=== PATIENT | male | born 1980 | race Two or more races ===

== ENCOUNTER 2020-08-09 11:28 | Emergency (ER) | payer MEDICAID ==
[~2020-08-09] VITALS: Ht 172.7 cm; Wt 90.7 kg
[2020-08-09 12:02] VITALS: BP 153/100
== END 2020-08-09 12:29 | disposition home or self-care (01) ==
LOC: ER 11:38
DX: L03.116 Cellulitis of left lower limb (principal)

== ENCOUNTER 2021-09-17 17:23 | Emergency (ER) | payer MEDICAID ==
[~2021-09-17] VITALS: Ht 172.7 cm; Wt 93.4 kg
--- NOTE | 2021-09-17 17:35 | NUR ---
TO ER BED 12, C/O MID STERNAL CHEST PRESSURE ON & OFF, NON RADIATING +DIZZINESS & BLURRED VISION SINCE SATURDAY, AAOX3, BREATHING EVEN AND NON LABORED, DENIES SOB, CHANGED INTO A GOWN AND CONNECTED TO MONITOR
--- NOTE | 2021-09-17 17:49 | NUR ---
ADAMA Navarro AC ESTABLISHED. LABS DRAWN AND COLLECTED AT BEDSIDE.
[2021-09-17 18:52] LABS: CALCIUM, SERUM 9.2 mg/dL (8.5-10.1); CARBON DIOXIDE 26 mmol/L (21-32); CHLORIDE 102 mmol/L (98-107); CREATININE 0.8 mg/dL (0.6-1.3); GLUCOSE 165 mg/dL (74-106); POTASSIUM 3.6 mmol/L (3.5-5.1); SODIUM SERUM 136 mmol/L (136-145); UREA NITROGEN, BLOOD 18 mg/dL (7-18)
[2021-09-17 19:47] LABS: BASOPHILS % (AUTO) 0.3 % (0.0-2.0); EOSINOPHILS % (AUTO) 0.4 % (0.0-6.0); HEMATOCRIT 43 % (39-51); HEMOGLOBIN 14.4 g/dL (13.5-17.5); LYMPHOCYTES # (AUTO) 2.4 K/uL (0.8-4.8); LYMPHOCYTES % (AUTO) 33.3 % (20.0-44.0); MEAN CORPUSCULAR HGB CONC 33 g/dl (31.0-36.0); MEAN CORPUSCULAR VOLUME 77 fL (80-96); MONOCYTES # (AUTO) 0.5 K/uL (0.1-1.30); MONOCYTES % (AUTO) 6.6 % (2.0-12.0); NEUTROPHILS # (AUTO) 4.3 K/uL (1.8-8.9); NEUTROPHILS % (AUTO) 59.4 % (43.0-81.0); PLATELET COUNT (AUTO) 244 K/uL (150-450); RED BLOOD CELL COUNT(AUTO) 5.62 MIL/uL (4.5-6.0); WHITE BLOOD COUNT (AUTO) 7.2 K/uL (4.3-11.0)
[2021-09-17] MEDS ORDERED: IV NS 0.9% 250 ML IV ONE (19:51)
[2021-09-17] MEDS ORDERED: IOHEXOL-300 100 ML VIAL IV ONE (19:51)
--- NOTE | 2021-09-17 20:03 | NUR ---
PT TAKEN TO CT VIA BEV
--- NOTE | 2021-09-17 20:17 | NUR ---
PT RETURNED TO ER BED [address]
--- NOTE | 2021-09-17 22:05 | NUR ---
Patient discharged to home in stable condition. Written and verbal after care instructions given. Patient verbalizes understanding of instruction. PT ambulatory with a steady gait IV removed. Catheter intact and site benign. Pressure and 4x4 applied to site. No bleeding noted.
[2021-09-17 22:27] VITALS: BP 129/93
== END 2021-09-17 22:05 | disposition home or self-care (01) ==
LOC: ER 17:26
DX: R07.89 Other chest pain (principal)
CPT/HCPCS: 36415; 71045; 71260; 80048; 83880; 84484; 85025; 85378; 93005; 99285; J7050; Q9967

== ENCOUNTER 2024-05-03 18:04 | Emergency (ER) | payer MEDICAID, OTHER ==
[~2024-05-03] VITALS: Ht 170.2 cm; Wt 90.7 kg
[2024-05-03 18:26] VITALS: BP 131/97; TEMP 97.9
[2024-05-03 20:17] VITALS: O2SAT 97
== END 2024-05-03 20:38 | disposition home or self-care (01) ==
LOC: ER 18:10
DX: L98.0 Pyogenic granuloma (principal); M79.641 Pain in right hand

== ENCOUNTER 2024-06-16 11:57 | Emergency (ER) | payer OTHER ==
[~2024-06-16] VITALS: Ht 172.7 cm; Wt 89.8 kg
[2024-06-16 12:57] LABS: BASOPHILS % (AUTO) 0.3 % (0.0-2.0); EOSINOPHILS % (AUTO) 0.8 % (0.0-6.0); HEMATOCRIT 46 % (39-51); HEMOGLOBIN 14.8 g/dL (13.5-17.5); LYMPHOCYTES # (AUTO) 2.1 K/uL (0.8-4.8); LYMPHOCYTES % (AUTO) 34.3 % (20.0-44.0); MEAN CORPUSCULAR HEMOGLOBIN 25 PG (26.0-33.0); MEAN CORPUSCULAR HGB CONC 32 g/dl (31.0-36.0); MEAN CORPUSCULAR VOLUME 79 fL (80-96); MONOCYTES # (AUTO) 0.4 K/uL (0.1-1.30); MONOCYTES % (AUTO) 6.3 % (2.0-12.0); NEUTROPHILS # (AUTO) 3.5 K/uL (1.8-8.9); NEUTROPHILS % (AUTO) 58.3 % (43.0-81.0); PLATELET COUNT (AUTO) 254 K/uL (150-450); RED BLOOD CELL COUNT(AUTO) 5.83 MIL/uL (4.5-6.0); RED CELL DISTRIBUTION WIDTH 14.2 % (11.5-15.0); WHITE BLOOD COUNT (AUTO) 6.1 K/uL (4.3-11.0)
[2024-06-16 13:06] LABS: CALCIUM, SERUM 9.1 mg/dL (8.5-10.1); CARBON DIOXIDE 27 mmol/L (21-32); CHLORIDE 105 mmol/L (98-107); CREATININE 0.7 mg/dL (0.6-1.3); GLUCOSE 172 mg/dL (74-106); POTASSIUM 3.8 mmol/L (3.5-5.1); SODIUM SERUM 142 mmol/L (136-145); UREA NITROGEN, BLOOD 13 mg/dL (7-18)
[2024-06-16] MEDS ORDERED: IBUP-1490 PO (14:33)
[2024-06-16 14:48] VITALS: BP 126/86; TEMP 98.4; O2SAT 97
== END 2024-06-16 14:48 | disposition home or self-care (01) ==
LOC: ER 11:57
DX: R07.89 Other chest pain (principal); R00.2 Palpitations; V29.99XA Rider (driver) (passenger) of other motorcycle injured in unspecified traffic accident, initial encounter; Y93.89 Activity, other specified; Y92.89 Other specified places as the place of occurrence of the external cause; Y99.8 Other external cause status
CPT/HCPCS: 36415; 71100-TC; 80048-TC; 84484-TC; 85025-TC